=== PATIENT | male | born 2000 | race Hispanic/Latino ===

== ENCOUNTER 2024-01-19 20:10 | Emergency (ER) | payer SELFPAY ==
[2024-01-19 20:41] VITALS: BP 119/60; PULSE 92; RESP 20; TEMP 37; O2SAT 100
[2024-01-19 21:44] LABS: Influenza A QL RT-PCR Negative (Negative); Influenza B QL RT-PCR Negative (Negative); RSV RNA, RT-PCR Negative (Negative); SARS-CoV-2 RNA PCR Negative (Negative)
--- NOTE | 2024-01-19 22:23 | ED.GENADULT ---
HPI - General Adult General Chief complaint: Upper Respiratory Infection Stated complaint: fever, shaky, weak, headache Time Seen by Provider: 01/19/24 21:14 Source: patient Mode of arrival: ambulatory Limitations: no limitations History of Present Illness HPI narrative: This is a 23-year-old male who presents to the ED for chief complaint of URI symptoms for the past 24 hours. Reports subjective fevers and chills. Also reports headache, generalized weakness and fatigue. Reports a lot of diffuse body aches. Reports multiple people at work have been sick lately. Denies cough, chest pain, shortness of breath, back pain, abdominal pain, nausea, vomiting, diarrhea. Related Data Allergies Allergy/AdvReac Type Severity Reaction Status Date / Time No Known Allergies Allergy Verified 01/19/24 20:46 Review of Systems Review of Systems: All systems as dictated in HPI Exam Narrative: GENERAL: Well-appearing, well-nourished, and in no acute distress. HEAD: Normocephalic, atraumatic. EYES: PERRLA and EOMI. ENT: Nares clear, no rhinorrhea or epistaxis. Mucous membranes moist. Oropharynx without tonsillar hypertrophy exudate or other lesions. NECK: Supple. No adenopathy or masses. CHEST: No respiratory distress. Clear to auscultation. No wheezes rales or rhonchi HEART: Regular rate and rhythm. No murmur heard. Normal peripheral pulses. ABDOMEN: Soft, nontender, nondistended, normal active bowel sounds. MSK: Normal range of motion. No edema. SKIN: Warm, dry, no rash. NEURO: Alert and oriented x3. No focal deficits. PSYCH: Normal mood and affect. Course Vital Signs Vital signs: Vital Signs Temperature 98.6 F 01/19/24 20:41 Pulse Rate 92 01/19/24 20:41 Respiratory Rate 20 01/19/24 20:41 Blood Pressure 119/60 01/19/24 20:41 Pulse Oximetry 100 01/19/24 20:41 Oxygen Delivery Room Air 01/19/24 20:41 Temperature 98.8 F 01/19/24 22:35 Pulse Rate 100 01/19/24 22:35 Respiratory Rate 20 01/19/24 22:35 Blood Pressure 114/69 01/19/24 22:35 Pulse Oximetry 90 01/19/24 22:35 Oxygen Delivery Room Air 01/19/24 20:41 Medical Decision Making MDM Narrative Medical decision making narrative: This is a 23-year-old male who presents to the ED with chief complaint of viral URI symptoms and body aches for the past 24 hours. Vitals are normal. Exam is benign. No respiratory distress. Lungs clear to auscultation. Viral swabs are negative. Symptoms are consistent with viral syndrome. Pt will be discharged in stable condition. Return precautions given and supportive measures discussed. Pt is understanding and agreeable with plan for discharge and follow-up with PCP. Vital Signs Vital Signs: Vital Signs Temperature 98.6 F 01/19/24 20:41 Pulse Rate 92 01/19/24 20:41 Respiratory Rate 20 01/19/24 20:41 Blood Pressure 119/60 01/19/24 20:41 Pulse Oximetry 100 01/19/24 20:41 Oxygen Delivery Room Air 01/19/24 20:41 Temperature 98.8 F 01/19/24 22:35 Pulse Rate 100 01/19/24 22:35 Respiratory Rate 20 01/19/24 22:35 Blood Pressure 114/69 01/19/24 22:35 Pulse Oximetry 90 01/19/24 22:35 Oxygen Delivery Room Air 01/19/24 20:41 Lab Data Labs: Lab Results 01/19/24 Range/Units 20:46 Influenza A (RT-PCR) Negative (Negative) Influenza B (RT-PCR) Negative (Negative) RSV (RT-PCR) Negative (Negative) SARS-CoV-2 RNA (RT-PCR) Negative (Negative) Discharge Plan Discharge Clinical Impression: Upper respiratory infection Patient Disposition: Home, Self-Care Condition: Stable Instructions: Antibiotic Form, Viral Syndrome (ED) Additional Instructions: Your exam is overall reassuring today. This is probably a viral syndrome, could be influenza that our labs are unable to detect yet. Try Advil cold and Sinus for symptom relief. You can take Tylenol as well. If you have any new or worsening symptoms please return
[2024-01-19 22:35] VITALS: BP 114/69; PULSE 100; RESP 20; TEMP 37.1; O2SAT 90
== END 2024-01-19 22:36 | disposition home or self-care (01) ==
PROVIDERS: Emergency Medicine; Emergency Provider Physician Assistant
DX: J06.9 Acute upper respiratory infection, unspecified (principal); Z20.822 Contact with and (suspected) exposure to COVID-19
CPT/HCPCS: 87637; 99283